=== PATIENT | female | born 1965 | race Caucasian/White ===

== ENCOUNTER → 2020-06-04 14:07 | Outpatient (CLI) | payer BC, SELFPAY | PROVIDERS: Referring Provider Internal Medicine; Visit Provider Internal Medicine | DX: Z23 Encounter for immunization (principal) | CPT/HCPCS: 90471; 90686 ==

== ENCOUNTER → 2021-06-12 | Outpatient (CLI) | payer BC, SELFPAY | PROVIDERS: Referring Provider Internal Medicine; Visit Provider Internal Medicine | DX: Z23 Encounter for immunization (principal) | CPT/HCPCS: 90471; 90686 ==

== ENCOUNTER 2021-11-25 13:54 | Emergency (ER) | payer OTHER, BC, SELFPAY ==
[2021-11-25 14:23] VITALS: BP 131/59; PULSE 106; RESP 18; TEMP 37.4; O2SAT 98; BMI 24.3
[2021-11-25 14:49] LABS: Add Manual Diff / Slide Review NO; Basophils Absolute Auto 0 /uL (0-100); Basophils Percent Auto 0.4 % (0-2); Eosinophils Absolute Auto 0 /uL (0-450); Eosinophils Percent Auto 0.4 % (2-4); Hematocrit 36.7 % (36-46); Hemoglobin 12.8 g/dL (12.0-16.0); Lymphocytes Absolute Auto 900 /uL (1100-4500); Lymphocytes Percent Auto 9.8 % (25-40); Mean Corpuscular HGB Conc 34.9 % (30-36); Mean Corpuscular Hemoglobin 31.3 PG (26-34); Mean Corpuscular Volume 89.8 fL (80-100); Monocytes Absolute Auto 900 /uL (0-900); Monocytes Percent Auto 9.6 % (3-14); Neutrophils Absolute Auto 7600 /uL (1500-7000); Neutrophils Percent Auto 79.8 % (50-75); Platelet Count 221 X10^3/uL (150-400); Red Blood Cell Count 4.09 X10^6/uL (4.0-5.2); Red Cell Distribution Width 12.9 % (11.6-14.8); White Blood Cell Count 9.5 X10^3/uL (4.5-11.0)
[2021-11-25 14:54] LABS: Alanine Aminotransferase 24 IU/L (<35); Albumin 4.5 g/dL (3.5-5.0); Albumin Globulin Ratio 1.4 (1.0-2.8); Alkaline Phosphatase 70 U/L (38-126); Aspartate Aminotransferase 30 IU/L (14-36); BUN Creatinine Ratio 16.5 (6-22); Bilirubin Total 0.8 mg/dL (0.2-1.3); Blood Urea Nitrogen 13 mg/dL (7-17); Calcium 9.1 mg/dL (8.4-10.2); Carbon Dioxide 26 mmol/L (22-32); Chloride 103 mmol/L (98-107); Estimated Glomerular Filt Rate > 60.0 mL/min (>60); Globulin 3.3 g/dL (1.7-4.1); Glucose 126 mg/dL (70-100); HEMOLYSIS < 15 (0-50); Lipase 437 U/L (23-300); Sodium 136 mmol/L (137-145); Total Protein 7.8 g/dL (6.3-8.2)
--- NOTE | 2021-11-25 15:03 | DI.CT.S_ITS ---
PROCEDURE: CT ABDOMEN PELVIS W CON INDICATIONS: pelvic pain TECHNIQUE: After the administration of intravenous contrast, axial sections acquired from the lung bases to the pubic symphysis. Coronal and sagittal reformats were performed. For radiation dose reduction, the following was used: automated exposure control, adjustment of mA and/or kV according to patient size. COMPARISON: None. FINDINGS: Image quality: Excellent. Lung bases: Unremarkable. Heart: No significant findings. ABDOMEN: Liver: Unremarkable. Gallbladder: Within normal limits. Biliary ducts: Unremarkable. Pancreas: Unremarkable. Spleen: Unremarkable. Adrenal Glands: Unremarkable. Kidneys and Ureters: Unremarkable. Stomach and Bowel: There is no bowel obstruction. No gastric or small bowel wall thickening. Significant wall thickening involving sigmoid colon with narrowing of the lumen and extensive pericolonic fat stranding seen in left lower quadrant abdomen concerning for sigmoid colitis versus diverticulitis. No abscess collection. Peritoneum: No abnormal intraperitoneal fluid. No free air. Ventral Wall: No hernias. Abdominal Nodes: No retroperitoneal or mesenteric adenopathy by size criteria. Vessels: Aorta and inferior vena cava are normal in size. PELVIS: Pelvic Organs: Unremarkable. Bladder: Unremarkable. Pelvic Nodes: No enlarged lymph nodes. Miscellaneous: No hernias are seen. Bones: No suspicious bony lesion. No acute vertebral body compression fracture. IMPRESSION: 1. Diffuse sigmoid colon wall thickening with edema and pericolonic fat stranding suggestive of sigmoid colitis versus diverticulitis. No abscess collection. No free fluid or free air. Dictated by: Nicanor Brown M.D. on 11/25/2021 at 15:28 Approved by: Nicanor Brown M.D. on 11/25/2021 at 15:34
[2021-11-25] MEDS: KETOROLAC 30 MG/ML VIAL 15 MG IV (15:11)
[2021-11-25] MEDS: SODIUM CHLORIDE 0.9% 1,000 ML 1000 ML IV (15:12)
[2021-11-25 15:19] LABS: Lactate (Lactic Acid) 0.8 mmol/L (0.7-2.1)
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
[2021-11-25 15:36] LABS: Amylase 106 U/L (30-110)
[2021-11-25 15:46] LABS: Appearance Urine UA CLEAR; Bilirubin Urine UA NEGATIVE (NEGATIVE); Glucose Urine UA TRACE g/dL (Negative); Ketones Urine UA NEGATIVE (NEGATIVE); Leukocyte Esterase Urine UA 2+ (NEGATIVE); Nitrite Urine UA POSITIVE (Negative); Occult Blood Urine UA NEGATIVE (Negative); Protein Urine UA 2+ (Negative); Specific Gravity Urine UA <=1.005 (1.000-1.035)
[2021-11-25 15:47] LABS: pH Urine UA 5.5 (4.5-8.0)
[2021-11-25 15:48] LABS: Color Urine UA ORANGE
[2021-11-25 15:54] LABS: Amorphous Sediment Urine 1+; Bacteria Urine Occasional (0-1); RBC Urine 0-1/HPF (0-5/HPF); Squamous Epithelial Cell Urine 0-1 /HPF (0-5/HPF); WBC Urine 1-5/HPF (0-5/HPF)
[2021-11-25 15:55] LABS: Culture Indicated Urine Specimen Cultured
[2021-11-25] MEDS: CIPROFLOXACIN 250 MG TABLET 500 MG PO (16:26)
[2021-11-25] MEDS: metroNIDAZOLE 500 MG TABLET PO (16:26)
[2021-11-25] MEDS: ONDANSETRON 4 MG/2 ML INJ IV (16:29)
[2021-11-25 16:34] VITALS: BP 100/65; PULSE 70; RESP 17; TEMP 37.1; O2SAT 100
== END 2021-11-25 16:53 | disposition home or self-care (01) ==
PROVIDERS: Emergency Medicine; Emergency Provider Nurse Practitioner Critical Care Medicine; PCP Physician Assistant Medical
DX: K57.32 Diverticulitis of large intestine without perforation or abscess without bleeding (principal); N30.01 Acute cystitis with hematuria
CPT/HCPCS: 36415; 74177; 80053; 81001; 82150; 83605; 83690; 85025; 87077; 87086; 87147; 96361; 96374; 96375; 99284; J1885; J2405; Q9967

== ENCOUNTER → 2022-07-07 12:42 | Outpatient (CLI) | payer OTHER, BC, SELFPAY | PROVIDERS: PCP Physician Assistant Medical; Referring Provider Internal Medicine; Visit Provider Internal Medicine | DX: Z23 Encounter for immunization (principal) | CPT/HCPCS: 90471; 90686 ==

== ENCOUNTER → 2023-08-03 11:23 | Outpatient (CLI) | payer OTHER, BC, SELFPAY | PROVIDERS: PCP Physician Assistant Medical; Referring Provider Family Medicine; Visit Provider Family Medicine | DX: Z23 Encounter for immunization (principal) | CPT/HCPCS: 90471; 90686 ==

== ENCOUNTER → 2024-08-01 14:02 | Outpatient (CLI) | payer OTHER, BC, SELFPAY | PROVIDERS: PCP Physician Assistant Medical; Referring Provider Internal Medicine; Visit Provider Internal Medicine | DX: Z23 Encounter for immunization (principal) | CPT/HCPCS: 90471; 90656 ==